=== PATIENT | male | born 1935 | race Caucasian/White ===

== ENCOUNTER 2016-11-24 08:45 | Emergency (ER) | payer MEDICARE, BC ==
[2016-11-24] MEDS ORDERED: ALBUTEROL/IPRATROPIUM 1 VIAL SOL INH ONE (08:57)
[2016-11-24] MEDS ORDERED: ALBUTEROL/IPRATROPIUM 1 VIAL SOL ONE (08:58)
[2016-11-24 09:12] VITALS: TEMP 99
[2016-11-24 11:01] VITALS: RESP 24
[2016-11-24 11:03] VITALS: BP 110/59; PULSE 96; O2SAT 90
== END 2016-11-24 10:55 | disposition home or self-care (01) | DRG 203 ==
LOC: ED 08:45
DX: J20.9 Acute bronchitis, unspecified (principal)
CPT/HCPCS: 71020; 87804; 99283; J7620

== ENCOUNTER 2018-03-10 13:03 | Emergency (ER) | payer MEDICARE, BC ==
[2018-03-10] MEDS ORDERED: PROTHROMBIN COMPLEX HUMAN 500 IU PDS IV ONE (13:19)
[2018-03-10 13:22] VITALS: TEMP 97.4
[2018-03-10] MEDS ORDERED: PROTHROMBIN COMPLEX HUMAN IV ONE (13:32)
[2018-03-10] MEDS ORDERED: ONDANSETRON HCL 4 MG/2 ML SOL ONE (13:46)
[2018-03-10] MEDS ORDERED: ONDANSETRON HCL 4 MG/2 ML SOL IV ONE (13:46)
[2018-03-10 13:52] LABS: INR 2.89 (0.86-1.12)
[2018-03-10] MEDS ORDERED: ETOMIDATE 2 MG/ML SOL IV ONE ×3 (14:08→14:27)
[2018-03-10] MEDS ORDERED: ATROPINE 0.1 MG/ML SOL ONE (14:08)
[2018-03-10] MEDS ORDERED: LIDOCAINE HCL 2% (100 MG) CARP ONE (14:08)
[2018-03-10] MEDS ORDERED: SUCCINYLCHOLINE CHLORIDE 20 MG/ML SOL IV ONE (14:09)
[2018-03-10] MEDS ORDERED: ROCURONIUM BROMIDE 10 MG/ML SOL IV ONE ×2 (14:09→14:27)
[2018-03-10] MEDS ORDERED: SODIUM CHLORIDE 0.9% 1000ML 1,000 ML IV ONE (14:12)
[2018-03-10] MEDS ORDERED: MIDAZOLAM 2 MG/2 ML SOL ONE ×2 (14:17)
[2018-03-10] MEDS ORDERED: MIDAZOLAM 2 MG/2 ML SOL IV ONE (14:30)
[2018-03-10 18:26] VITALS: O2SAT 100
[2018-03-10 18:29] VITALS: RESP 21
[2018-03-10 19:22] VITALS: BP 116/49; PULSE 58
== END 2018-03-10 14:59 | disposition short-term general hospital (02) | DRG 66 ==
LOC: ED 13:03
DX: I60.9 Nontraumatic subarachnoid hemorrhage, unspecified (principal); W11.XXXA Fall on and from ladder, initial encounter; I48.91 Unspecified atrial fibrillation; I10 Essential (primary) hypertension; R40.2362 Coma scale, best motor response, obeys commands, at arrival to emergency department; R40.2142 Coma scale, eyes open, spontaneous, at arrival to emergency department; R40.2252 Coma scale, best verbal response, oriented, at arrival to emergency department; R29.705 NIHSS score 5
CPT/HCPCS: 31500; 36415; 70450; 71045; 85610; 96365; 96374; 96375; 99291; C9132; J0330; J0461; J2001; J2250; J2405; A9270-GY; J3490